=== PATIENT | female | born 1985 | race Hispanic/Latino ===

== ENCOUNTER 2019-03-27 12:47 | Emergency (ER) | payer BC ==
[~2019-03-27] VITALS: Ht 162.6 cm; Wt 73.5 kg
--- OUTSIDE RECORDS SUMMARY | 2019-03-27 12:50 | XMS REPORT ---
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 Allergies, Adverse Reactions, Alerts Allergy Name Allergy Type Status Severity Reaction(s) Onset Date Inactive Date Treating Clinician Comments Sulfa (Sulfonamide Antibiotics) DA Active NM 2018-07-31 00:00:00 No Known Drug Allergies DA Active U 2018-07-29 00:00:00 No Known Drug Allergies DA Active U 2018-07-28 00:00:00 Medications This patient has no known medications. Results Test Description Test Time Test Comments Text Results Atomic Results Result Comments PLACENTA THIRD TRIMESTER 2018-08-04 07:41:00 RUN DATE: 08/04/18 [facility] PAGE 1 RUN TIME: 741 Specimen Inquiry RUN USER: INTERFACE PATIENT: AUNDREA BREWSTER LOC: [facility] U #: [id number] AGE/SX: ROOM: [facility] RE07/31/18REG DR: Mikaela Knapp MD : 89 BED: A DIS: 08/02/18 STATUS: DIS IN TLOC: SPEC #: [id number] RECD: 08/01/18 STATUS: AYANA RE #: [id number] ANGELIA: 07/31/18- SUBM DR: Mikaela Knapp MD ENTERED: 08/01/18 SP TYPE: PLACIII OTHR DR: ORDERED: LEVEL V SURGICA CODES: [id number] - PLACENTA, NOS PROCEDURES: LEVEL V SURGICA (Incomplete) TISSUES: PLACENTA, NOS - PLACENTA CLINICAL HISTORY 33 year old, 39.4 weeks, , vaginal delivery, meconium, fever 100.2 (wpd) FINAL DIAGNOSIS Placenta, 39.4 weeks gestational age, vaginal delivery: - third trimester morphology, 418 gms (25th percentile) - acute chorioamnionitis (Stage 2, Grade 2) - acute umbilical cord vasculitis (Stage 2, Grade 2) - meconium macrophages within membranes Tissue code 1 CPT code(s): 99479 [facility] 08/03/18 GROSS DESCRIPTION The specimen was received in a container, labeled with the patient's name, unit number and designated "placenta". The following attributes are observed: Cord insertion: 5 cm from margin Cord length: 38 cm Number of vessels: 3 Cord color: Garcia Other cord findings: Slightly edematous surface findings: Steel blue, wrinkled, glistening with green discoloration Vasculature: Displays unremarkable blood vasculature Membranes rupture site: 3 cm to margin Membrane color: Garcia Other membrane findings: Thickened The trimmed placental weight: 418 gm Disk measurement: 18.0 x 16.0 x 3.0 cm in greatest dimension CONTINUED ON NEXT PAGE RUN DATE: 08/04/18 [facility] PAGE 2 RUN TIME: 741 Specimen Inquiry RUN USER: INTERFACE SPEC #: [id number] PATIENT: AUNDREA BREWSTER #[id number] (Continued) GROSS DESCRIPTION (Continued) Accessory lobes: None Maternal surface: Lobulated and intact Parenchyma: Red, beefy, and spongy with peripheral fibrosis P arenchyma lesions: None Cassettes: A1 through A4 chuck/wpd 08/02/18 @ 0909 ------- Signed Bárbara Brown MD 08/03/18 0930 Shandra Edwards 08/04/18 0741 END OF REPORT AG HEPATITIS B SURFACE 2018-07-31 04:48:00 AG HEPATITIS B SURFACE (test code=HBSAG) NONREACTIVE NONREACTIVE Comments to [employer]: LDO [employer] CONSENT FORM SIGNED FOR HIV TESTING? YAB HEPATITIS C [id number] 04:48:00* Test Item Value Reference Range Comments AB HEPATITIS C (test code=HCVAB) NONREACTIVE NONREACTIVE SIGNAL TO CUTOFF (test code=CUTOFF) 0.07 <0.80 Comments to [employer]: LDO [employer] CONSENT FORM SIGNED FOR HIV TESTING? YAB [id number] 04:48:00* Test Item Value Reference Range Comments AB TREPONEMA (test code=TREPAB) NONREACTIVE NONREACTIVE Comments to [employer]: LDO [employer] CONSENT FORM SIGNED FOR HIV TESTING? YAB HIV 1 04:48:00* Test Item Value Reference Range Comments AB HIV 1 2 (test code=ORQ63LX) NONREACTIVE NONREACTIVE Done by [employer] HIV Ag/Ab Combo Screen Comments to [employer]: LDO [employer] CONSENT FORM SIGNED FOR HIV TESTING? YAG HEPATITIS B [id number] 04:25:00* Test Item Value Reference Range Comments AG HEPATITIS B SURFACE (test code=HBSAG) NONREACTIVE NONREACTIVE Comments to [employer]: LDO [employer] CONSENT FORM SIGNED FOR HIV TESTING? YAB HEPATITIS C [id number] 04:25:00* Test Item Value Reference Range Comments AB HEPATITIS C (test code=HCVAB) NONREACTIVE SIGNAL TO CUTOFF (test code=CUTOFF) <0.80 Comments to [employer]: LDO [employer] CONSENT FORM SIGNED FOR HIV TESTING? YAB [id number] 04:25:00* Test Item Value Reference Range Comments AB TREPONEMA (test code=TREPAB) NONREACTIVE NONREACTIVE Comments to [employer]: LDO [employer] CONSENT FORM SIGNED FOR HIV TESTING? YAB HIV 1 04:25:00* Test Item Value Reference Range Comments AB HIV 1 2 (test code=RLY23CM) NONREACTIVE Comments to [employer]: LDO [employer] CONSENT FORM SIGNED FOR HIV TESTING? YAG HEPATITIS B [id number] 04:18:00* Test Item Value Reference Range Comments AG HEPATITIS B SURFACE (test code=HBSAG) NONREACTIVE Comments to [employer]: LDO [employer] CONSENT FORM SIGNED FOR HIV TESTING? YAB HEPATITIS C [id number] 04:18:00* Test Item Value Reference Range Comments AB HEPATITIS C (test code=HCVAB) NONREACTIVE SIGNAL TO CUTOFF (test code=CUTOFF) <0.80 Comments to [employer]: LDO [employer] CONSENT FORM SIGNED FOR HIV TESTING? YAB [id number] 04:18:00* Test Item Value Reference Range Comments AB TREPONEMA (test code=TREPAB) NONREACTIVE NONREACTIVE Comments to [employer]: LDO [employer] CONSENT FORM SIGNED FOR HIV TESTING? YAB HIV 1 04:18:00* Test Item Value Reference Range Comments AB HIV 1 2 (test code=RSB42YH) NONREACTIVE Comments to [employer]: LDO [employer] CONSENT FORM SIGNED FOR HIV TESTING? YCBC W/AUTO [id number] 03:57:00* Test Item Value Reference Range Comments WHITE BLOOD CELL (test code=WBC) 14.1 K/mm3 6.6-12.1 RED BLOOD CELL (test code=RBC) 4.79 M/mm3 3.45-5.01 HEMOGLOBIN (test code=HGB) 13.8 g/dL 10.7-13.9 HEMATOCRIT (test code=HCT) 42.1 % 32.1-42.1 MEAN CELL VOLUME (test code=MCV) 88 fL 84.1-94.8 MEAN CELL HGB (test code=MCH) 28.8 pg 27-35 MEAN CELL HGB CONCETRATION (test code=MCHC) 32.8 gm/dL 32.2-34.1 RED CELL DISTRIBUTION WIDTH (test code=RDW) 14.5 % 12.4-16.5 PLATELET COUNT (test code=PLT) 278 K/mm3 133-385 IMMATURE PLATELET FRACTION (test code=IPF) 0.0 % 0.0-10.8 MEAN PLATELET VOLUME (test code=MPV) 11.6 fl 9.1-12.7 NEUTROPHIL % (test code=NT%) 79.8 % 56.5-79.4 LYMPHOCYTE % (test code=LY%) 12.9 % 14.3-34.3 MONOCYTE % (test code=MO%) 6.0 % 5.1-10.4 EOSINOPHIL % (test code=EO%) 0.5 % 0.1-3.0 BASOPHIL % (test code=BA%) 0.4 % 0.1-1.0 NEUTROPHIL # (test code=NT#) 11.2 K/mm3 LYMPHOCYTE # (test code=LY#) 1.8 K/mm3 MONOCYTE # (test code=MO#) 0.8 K/mm3 EOSINOPHIL # (test code=EO#) 0.07 K/mm3 BASOPHIL # (test code=BA#) 0.1 K/mm3 RBC MORPHOLOGY REQUIRED (test code=RBCM) NORMAL NORMAL PLATELET MORPHOLOGY REQUIRED (test code=PLTMR) NORMAL NORMAL
[2019-03-27] MEDS ORDERED: KETOROLAC TROMETHAMINE 30 MG/ML VIAL IV ONE (13:34)
[2019-03-27] MEDS ORDERED: KETOROLAC TROMETHAMINE 30 MG/ML VIAL ONE (14:13)
--- NOTE | 2019-03-27 15:00 | NUR ---
PT RESTING, VITAL SIGNS STABLE, PT VOICES NO COMPLAINTS AT THIS TIME
--- NOTE | 2019-03-27 15:25 | Diagnostic Imaging Report ---
Exam: CT abdomen and pelvis Clinical history: Left flank pain Technique: Helical images of the abdomen and pelvis were obtained without contrast DOSE REDUCTION: The exams was performed according to the departmental dose-optimization program which includes automated exposure control, adjustment of the mA and/or kV according to patient size and/or use of iterative reconstruction technique. Findings: The lung bases are clear. There is no evidence of pleural effusion. The cardiac size is within normal limits. The liver, spleen, pancreas, gallbladder, adrenal glands, and left kidney are unremarkable. In the interpolar region right kidney, a 2.9 cm ill-defined slightly hyperdense structure is noted. This may represent a hemorrhagic cyst. However, a mass cannot be excluded. If indicated, ultrasound or CT or MR using renal mass protocol is recommended for further assessment. The small and large bowels are normal in caliber without evidence of obstruction. The bladder, uterus, and ovaries are within normal limits. There is no evidence of lymphadenopathy or free fluid. The aorta and IVC are normal in caliber. Impression: 1. Ill-defined 2.9 cm slightly hyperdense lesion in the right kidney which may represent a hemorrhagic cyst. However, if indicated, further characterization using ultrasound versus CT or MR with renal mass protocol is recommended. Signed by: Dr. Robert Lynch MD on 03/27/2019 3:23 PM
[2019-03-27 15:37] VITALS: BP 128/62
== END 2019-03-27 15:43 | disposition home or self-care (01) ==
LOC: FSED 12:47
DX: R10.12 Left upper quadrant pain (principal); N28.9 Disorder of kidney and ureter, unspecified
CPT/HCPCS: 74176; 80048; 80076; 81003; 81025; 85025; 99284; J1885